=== PATIENT | female | born 1965 | race African-American/Black ===

== ENCOUNTER 2016-06-08 08:40 | Outpatient (CLI) | payer OTHER ==
[~2016-06-08 08:40] MED LIST: METOPROLOL25 M1 PO; MICROZIDE12.5 MG PO
== END 2016-06-08 20:10 | disposition home or self-care (01) ==
LOC: MAMMO 08:40
DX: Z12.31 Encounter for screening mammogram for malignant neoplasm of breast (principal)
CPT/HCPCS: G0202-TC

== ENCOUNTER 2016-09-23 15:57 | Emergency (ER) | payer OTHER ==
[~2016-09-23] VITALS: Ht 172.7 cm; Wt 68.9 kg
== END 2016-09-23 17:30 | disposition home or self-care (01) ==
LOC: ED 15:57
DX: M25.552 Pain in left hip (principal); M25.562 Pain in left knee
CPT/HCPCS: 96372; 99283; J1885

== ENCOUNTER 2017-12-29 08:17 | Outpatient (CLI) | payer OTHER | END 2017-12-29 21:30 | disposition home or self-care (01) | LOC: MAMMO 08:17 | DX: Z12.31 Encounter for screening mammogram for malignant neoplasm of breast (principal) ==